=== PATIENT | female | born 1990 | race American Indian/Alaskan Native ===

== ENCOUNTER 2022-01-12 11:20 | Emergency (ER) | payer MEDICAID ==
[2022-01-12 11:55] VITALS: BP 164/95
--- NOTE | 2022-01-12 12:31 | Emergency Department Report ---
ED Laceration HPI - HPI Chief Complaint: Laceration/Recheck/Suture Stated Complaint: CUT ON LT TOE Occurred When: Yesterday Location: Upper Extremity Severity: mild Tetanus Status: Up to Date Laceration Symptoms: No Foreign Body Sensation, No Numbness, No Weakness, No Pain Other History: 32-year-old female presents to the ED complaining of mild laceration to the left great toe x1 day ago. She states that she was attempting to get away from a dog she slipped and fell on an unknown object. 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 She states that she applied a Band-Aid which controlled the bleeding. Patient is able to bend toe without any difficulty. Denies any numbness or tingling. No obvious deformity noted. No distracting injury noted. Patient is ambulatory. Patient is alert and oriented x3. No acute distress noted. No ill appearance noted. ED Review of Systems ROS: Stated complaint: CUT ON LT TOE Other details as noted in HPI Constitutional: denies: chills, fever Eyes: denies: eye pain, eye discharge, vision change ENT: denies: ear pain, throat pain Respiratory: denies: cough, shortness of breath, wheezing Cardiovascular: denies: chest pain, palpitations Endocrine: no symptoms reported Gastrointestinal: denies: abdominal pain, nausea, diarrhea Genitourinary: denies: urgency, dysuria, discharge Musculoskeletal: denies: back pain, joint swelling, arthralgia Skin: denies: rash, lesions Neurological: denies: headache, weakness, paresthesias Psychiatric: denies: anxiety, depression Hematological/Lymphatic: denies: easy bleeding, easy bruising ED Past Medical Hx - Medications Home Medications: Home Medications Medication Instructions Recorded Confirmed Last Taken Type cephALEXin [Keflex] 500 mg PO Q12HR 7 Days #14 cap 01/12/22 Unknown Rx Laceration Physical Exam - Exam General: Vital signs noted. No distress. Alert and acting appropriately. Laceration Exam: Yes Normal Distal CMS, No Foreign Body, No Exposed Tendon, Vessel, or Nerve, No Tendon Injury ED Course Vital Signs 01/12/22 11:51 Temperature 98.1 F Pulse Rate 102 H Respiratory 18 Rate Blood Pressure 164/95 [Left] O2 Sat by Pulse 100 Oximetry ED Medical Decision Making - Medical Decision Making 32-year-old female presents to the ED complaining of mild laceration to the left great toe x1 day ago. She states that she was attempting to get away from a dog she slipped and fell on an unknown object. 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 She states that she applied a Band-Aid which controlled the bleeding. Patient is able to bend toe without any difficulty. Denies any numbness or tingling. No obvious deformity noted. No distracting injury noted. Patient is ambulatory. Patient is alert and oriented x3. No acute distress noted. No ill appearance noted. Physical examination patient has less than 1 cm laceration noted to the left great toe. Dermabond used to repair less than 1 cm the leg cleaned with normal saline. Rechecked the patient is resting quietly , comfortable and feeling better. I discussed the results of diagnostic study, my clinical impression and the plan for further treatment with the patient. Patient agrees with plan and discharge at this present time. All question addressed. I have given the patient instruction regarding a diagnosis ,expectation ,follow- up and return precaution. I explained to the patient that emergent condition may arise and to return to the ED for new worsen and any new persisting condition. I have explained the importance of following up with the primary care physician or referral physician listed below has instructed. The patient verbalized understanding of discharge instruction. Critical care attestation.: If time is entered above; I have spent that time in minutes in the direct care of this critically ill patient, excluding procedure time. ED Disposition Clinical Impression: Laceration of right great toe Qualifiers: Encounter type: initial encounter Damage to nail status: without damage Foreign body presence: without foreign body Qualified Code(s): S91.111A - Laceration without foreign body of right great toe without damage to nail, initial encounter Disposition: HOME / SELF CARE / HOMELESS Is pt being admited?: No Does the pt Need Aspirin: No Condition: Stable Instructions: Laceration Care, Adult, [id number] Additional Instructions: Take medication has prescribed Return to the ED for any worsening symptom Prescriptions: cephALEXin [Keflex] 500 mg PO Q12HR 7 Days #14 cap Referrals: [facility] [Provider Group] - 3-5 Days Forms: Work/School Release Form(ED) Time of Disposition: 12:39
== END 2022-01-12 13:20 | disposition home or self-care (01) ==
LOC: ED 11:20
DX: S91.112A Laceration without foreign body of left great toe without damage to nail, initial encounter (principal); W19.XXXA Unspecified fall, initial encounter; Y93.89 Activity, other specified; Y92.89 Other specified places as the place of occurrence of the external cause; Y99.8 Other external cause status
CPT/HCPCS: 99282